=== PATIENT | female | born 1980 | race Asian ===

== ENCOUNTER → 2023-01-30 11:24 | Outpatient (CLI) | payer SELFPAY ==
--- NOTE | 2023-01-30 11:31 | DI.RAD.S_ITS ---
PROCEDURE: XR ANKLE LT MIN 3V INDICATIONS: Injury to left ankle TECHNIQUE: 3 views of the ankle were acquired. COMPARISON: None. FINDINGS: Bones: No fractures or dislocations. Ankle mortise is normally aligned. No suspicious bony lesions. Soft tissues: No tibiotalar joint effusion. Achilles tendon appears normal. IMPRESSION: Normal left ankle radiographs Approved by: Alfonso Moise M.D. on 01/30/2023 at 17:47
== END ==
PROVIDERS: Referring Provider Physician Assistant; Visit Provider Physician Assistant
DX: M25.572 Pain in left ankle and joints of left foot (principal)
CPT/HCPCS: 73610